=== PATIENT | female | born 1965 | race Caucasian/White ===

== ENCOUNTER → 2017-04-20 | Outpatient (CLI) | payer OTHER ==
[~2017-04-20] MED LIST: ESTR1.25; MULT-257
== END | disposition home or self-care (01) ==
LOC: RAD 16:32
PROVIDERS: ATTEND Physician Assistant
DX: M50.323 Other cervical disc degeneration at C6-C7 level (principal); M50.223 Other cervical disc displacement at C6-C7 level; G96.19 Other disorders of meninges, not elsewhere classified; D18.09 Hemangioma of other sites; Q76.5 Cervical rib; M25.511 Pain in right shoulder
CPT/HCPCS: 72141